=== PATIENT | female | born 1995 | race Caucasian/White ===

== ENCOUNTER 2018-09-30 10:15 | Emergency (ER) | payer OTHER ==
[2018-09-30 10:22] VITALS: BP 139/85
[2018-09-30] MEDS ORDERED: KETOROLAC TROMETHAMINE INJ/PF 30 MG/1 ML SDV IV ONE (10:42)
[2018-09-30] MEDS ORDERED: DEXAMETHASONE SOD PHOS INJ 10 MG/1 ML VIAL IV ONE (10:42)
--- NOTE | 2018-09-30 10:52 | ER Document Report ---
ED Oral Problem - General Chief Complaint: Sore Throat Stated Complaint: THROAT PAIN Time Seen by Provider: 09/30/18 10:34 Mode of Arrival: Ambulatory Information source: Patient Notes: 23-year-old female presents to ED for complaint of sore throat since Friday. She denies any cough cold congestion or fever. She is alert and oriented respirations regular and unlabored speaking in full sentences walks with a even steady gait. Patient is here visiting from [place]. TRAVEL OUTSIDE OF THE [place] IN LAST 30 DAYS: No - HPI Patient complains to provider of: Sore throat Onset: Other Onset: Gradual - Friday Quality of pain: Sharp, Throbbing Pain Level: 3 Sore throat: Moderate Associated symptoms: White patches in mouth, Other Worsened by: Nothing Relieved by: Nothing Similar symptoms previously: No Recently seen / treated by doctor/dentist: No - Related Data Allergies/Adverse Reactions: No Known Allergies Allergy (Unverified 09/30/18 10:16) Past Medical History - General Information source: Patient - Social History Smoking Status: Never Smoker Cigarette use (# per day): No Chew tobacco use (# tins/day): No Smoking Education Provided: No Frequency of alcohol use: Rare Drug Abuse: None Occupation: Cardiopulmonary rehab Lives with: Family Family History: Reviewed & Not Pertinent Patient has suicidal ideation: No Patient has homicidal ideation: No - Medical History Medical History: Negative - Past Medical History Cardiac Medical History: Reports: None Pulmonary Medical History: Reports: None EENT Medical History: Reports: None Neurological Medical History: Reports: None Endocrine Medical History: Reports: None Renal/ Medical History: Reports: None Malignancy Medical History: Reports: None GI Medical History: Reports: None Musculoskeletal Medical History: Reports None Skin Medical History: Reports None Psychiatric Medical History: Reports: None Traumatic Medical History: Reports: None Infectious Medical History: Reports: None Surgical Hx: Negative Past Surgical History: Reports: None - Immunizations Immunizations up to date: Yes Hx Diphtheria, Pertussis, Tetanus Vaccination: Yes Review of Systems - Review of Systems Notes: REVIEW OF SYSTEMS: CONSTITUTIONAL : Denies fever, chills, or sweats. Denies recent illness. EENT: Complains of throat and mouth pain and difficulty swallowing. Denies eye , ear, pain or symptoms. Denies nasal or sinus congestion or discharge. Denies throat, tongue, or mouth swelling . CARDIOVASCULAR: Denies chest pain. Denies palpitations or racing or irregular heart beat. Denies ankle edema. RESPIRATORY: Denies cough, cold, or chest congestion. Denies shortness of breath, difficulty breathing, or wheezing. GASTROINTESTINAL: Denies abdominal pain or distention. Denies nausea, vomiting , or diarrhea. Denies blood in vomitus, stools, or per rectum. Denies black, tarry stools. Denies constipation. GENITOURINARY: Denies difficulty urinating, painful urination, burning, frequency, blood in urine, or discharge. FEMALE GENITOURINARY: Denies vaginal bleeding, heavy or abnormal periods, irregular periods. Denies vaginal discharge or odor. MUSCULOSKELETAL: Denies back or neck pain or stiffness. Denies joint pain or swelling. SKIN: Denies rash, lesions or sores. HEMATOLOGIC : Denies easy bruising or bleeding. LYMPHATIC: Denies swollen, enlarged glands. NEUROLOGICAL: Denies confusion or altered mental status. Denies passing out or loss of consciousness. Denies dizziness or lightheadedness. Denies headache. Denies weakness or paralysis or loss of use of either side. Denies problems with gait or speech. Denies sensory loss, numbness, or tingling. Denies seizures. PHYSICAL EXAMINATION: GENERAL: Well-appearing, well-nourished and in no acute distress. HEAD: Atraumatic, normocephalic. EYES: Pupils equal round and reactive to light, extraocular movements intact, conjunctiva are normal. ENT: Swollen nasal turbinates with whitish yellow drainage enlarged tonsils with exudates. Moist mucous membranes. NECK: Normal range of motion, supple without lymphadenopathy LUNGS: Breath sounds clear to auscultation bilaterally and equal. No wheezes rales or rhonchi. HEART: Regular rate and rhythm without murmurs ABDOMEN: Soft, nontender, nondistended abdomen. No guarding, no rebound. No masses appreciated. Female : deferred Musculoskeletal: Normal range of motion, no pitting or edema. No cyanosis. NEUROLOGICAL: Cranial nerves grossly intact. Normal speech, normal gait. Normal sensory, motor exams PSYCH: Normal mood, normal affect. SKIN: Warm, Dry, normal turgor, no rashes or lesions noted. PSYCHIATRIC: Denies anxiety or stress. Denies depression, suicidal ideation, or homicidal ideation. ALL OTHER SYSTEMS REVIEWED AND NEGATIVE. Dictation was performed using Dragon voice recognition software Physical Exam - Vital signs Vitals: Temp Pulse Resp BP Pulse Ox 99.7 F 123 H 16 139/85 H 99 09/30/18 10:21 09/30/18 10:21 09/30/18 10:21 09/30/18 10:21 09/30/18 10:21 Course - Re-evaluation Re-evalutation: 09/30/18 21:16 Was positive for strep pharyngitis negative for mono. She was treated with penicillin G, Decadron 10 mg IV and Toradol IV. Patient was discharged home with instructions to follow-up with her primary doctor or return to the ED for any increase in symptoms. Patient was instructed if she had any fevers or worsening of symptoms in the next 2 days to call me and I will send in a prescription to the pharmacy. Patient verbalized understanding and agreement with treatment plan. Patient was discharged home. - Vital Signs Vital signs: Temp Pulse Resp BP Pulse Ox 99.7 F 123 H 16 139/85 H 99 09/30/18 10:21 09/30/18 10:21 09/30/18 10:21 09/30/18 10:21 09/30/18 10:21 Discharge - Discharge Clinical Impression: Strep pharyngitis Condition: Stable Disposition: HOME, SELF-CARE Additional Instructions: STREP THROAT: Your sore throat is due to the streptococcus germ (strep throat). Strep throat usually makes you feel quite ill with fever and aches, headache, swollen sore throat, and tender bumps under the angles of the jaw. Strep throat requires antibiotic treatment. Although the sore throat may go away by itself, complications such as rheumatic fever, kidney disease, or throat abscess can occur. We usually prescribe antibiotics by mouth. Be sure to take the medicine until it's gone. If you stop early, the strep may come back. If you are vomiting, are severely ill, or can't remember to take pills, we can give you an antibiotic shot. Take acetaminophen or ibuprofen for pain and fever. Sip frequent clear liquids, or use popsicles or ice chips. Anesthetic sprays or lozenges may help. Make sure the air in the room is not too dry. Avoid using decongestants or antihistamines. Call the doctor if there is no improvement in three days, or if you have difficulty breathing, increasing throat pain, high fever, rash, or frequent vomiting. Penicillins The antibiotic you have received is a member of the penicillin family. This is a very useful class of antibiotics. The particular type of antibiotic chosen for you was determined by the nature of your problem. Penicillins are absorbed best when taken on an empty stomach, and should be taken either a half hour before or two hours after a meal. Some newer medicines of the penicillin class are better taken with food -- if this is the case, the pharmacist will label the medicine to alert you. Penicillins usually have no side effects. However, allergy to penicillins is common. If you have had an allergic reaction to any drug of the penicillin family, you should never take any other penicillin. Notify your doctor at once if you develop hives, itching, swelling, faintness, or shortness of breath. Less serious side effects can include nausea or diarrhea. Toradol Injection You have been given an injection of ketorolac tromethamine (Toradol). This is an excellent, safe drug for pain control. It also has potent antiinflammatory action. You should have significant pain relief within about one hour. Toradol is not addicting and is non-sedating. It does not interfere with driving or work. Call or return if you develop itching, hives, shortness of breath, or rash. STEROID MEDICATION: You have been given a medicine of the cortisone/steroid class. This medication is used to control inflammation or allergy. It is usually only given for a short period of time, until the acute process subsides. There are usually no side effects from short-term use of cortisone-like medications. Some persons feel an increased sense of well-being and are not sleepy at bedtime. Long-term use of cortisone medications is best avoided, unless required for a severe condition. If your condition does not remit, or relapses after the course of corticosteroid medication, you should consult your physician. FOLLOW-UP CARE: If you have been referred to a physician for follow-up care, call the physician s office for an appointment as you were instructed or within the next two days. If you experience worsening or a significant change in your symptoms, notify the physician immediately or return to the Emergency Department at any time for re-evaluation. Forms: Elevated Blood Pressure
[2018-09-30] MEDS ORDERED: PENICILLIN G BENZATHINE 1.2 MILLION UNIT/2 ML DISP.SYRIN IM ONE (11:20)
== END 2018-09-30 11:35 | disposition home or self-care (01) ==
LOC: ER 10:15
DX: J02.0 Streptococcal pharyngitis (principal); R13.10 Dysphagia, unspecified
CPT/HCPCS: 99283; 36415; 87880; 86308; J1885; J0561; J1100